=== PATIENT | female | born 2000 | race African-American/Black ===

== ENCOUNTER 2022-11-01 10:31 | Emergency (ER) | payer OTHER, SELFPAY ==
[2022-11-01 10:34] VITALS: BP 101/60; PULSE 111; RESP 18; TEMP 36.8; O2SAT 98; BMI 21.5
--- NOTE | 2022-11-01 11:19 | ED_ITS ---
HPI - General Adult General Date Seen: 11/01/22 Chief complaint: Skin/Abscess/Foreign Body Stated complaint: Rash on left side of body Time Seen by Provider: 11/01/22 10:40 Source: patient Mode of arrival: ambulatory Limitations: no limitations History of Present Illness HPI narrative: Patient is a 22-year-old young woman who presents for evaluation of a rash on her left arm. She says a couple of days ago she developed a small area of redness which has now spread. It is tender to palpation, not itchy, no injury to the area that she is aware of. No fevers or systemic complaints. General health is good. No allergies to medicines. Related Data Previous Rx's Medication Instructions Recorded cephalexin 500 mg capsule 500 mg PO QID #28 caps 11/01/22 Allergies Allergy/AdvReac Type Severity Reaction Status Date / Time No Known Drug Allergies Allergy Verified 11/01/22 10:36 Review of Systems Status of ROS: Reports: 6 or more systems reviewed and unremarkable except as noted in History and below PFSH PFS Social History Smoking Status: Never smoker Do you use any of these nicotine containing products: None Second hand tobacco smoke exposure: No How often do you have a drink containing alcohol: never How often do you have six or more drinks on one occasion: Never AUDIT-C Alcohol total score: 0 Non-prescribed substance use: denies use service: No Exam Narrative: Exam Narrative: Vital signs as noted above. In general, an alert, well-appearing patient. Head: Normocephalic, atraumatic. Eyes: Pupils are equal reactive. Extraocular movements are full. Conjunctivae are normal. ENT: Mucous membranes are moist. Extremities: Well perfused. Pulses intact. On the left forearm there is an area of erythema and warmth with mild swelling, no fluctuance or evidence of abscess. I do not see an obvious wound or insect bite. No lymphangitic streaki ng. Distal CMS is intact. Neurologic: Patient is alert and oriented to person and place. Speech is fluent. Face is symmetric. Moves all extremities equally. Affect: Normal. Skin: Warm and dry. Well perfused. Left arm as above. Const: Vital Signs, click to edit/add: Vital Signs - 24 hr 11/01/22 10:34 Temperature 98.2 F Pulse Rate [Right Pulse Oximeter] 111 H Respiratory Rate 18 Blood Pressure [Ri ght Upper Arm] 101/60 Pulse Oximetry 98 Oxygen Delivery Me thod Room Air Documenting provider has reviewed patient's vital signs: yes Course Course Hospital Course: This appears to be cellulitis, etiology unclear. Nothing that requires I and D. She is clinically nontoxic, afebrile, without significant health history. I think it is reasonable to start her on oral antibiotics, discussed with her that symptoms may worsen slightly over the next 24 hours but she should not have severe increase in redness swelling or pain and should not have new symptoms such as fever, chills, vomiting. If so, she should return to the emergency department for re-evaluation. If no improvement over the next couple of days, reassess with primary care. Keflex as prescribed. Vital Signs Vital signs: Initial Vital Signs Temperature 98.2 F 11/01/22 10:34 Temperature Source Temporal Artery Scan 11/01/22 10:34 Pulse Rate 111 H 11/01/22 10:34 Pulse Rhythm Regular 11/01/22 10:34 Pulse Strength 3+ Normal 11/01/22 10:34 Respiratory Rate 18 11/01/22 10:34 Blood Pressure 101/60 11/01/22 10:34 Blood Pressure Mean 73 11/01/22 10:34 Blood Pressure Position Sitting 11/01/22 10:34 Pulse Oximetry 98 11/01/22 10:34 Oxygen Delivery Method Room Air 11/01/22 10:34 Vital Signs Temperature 98.2 F 11/01/22 10:34 Pulse Rate 111 H 11/01/22 10:34 Respiratory Rate 18 11/01/22 10:34 Blood Pressure 101/60 11/01/22 10:34 Pulse Oximetry 98 11/01/22 10:34 Oxygen Delivery Method Room Air 11/01/22 10:34 Temperature 98.2 F 11/01/22 10:34 Pulse Rate 111 H 11/01/22 10:34 Respiratory Rate 18 11/01/22 10:34 Blood Pressure 101/60 11/01/22 10:34 Pulse Oximetry 98 11/01/22 10:34 Oxygen Delivery Method Room Air 11/01/22 10:34 Discharge Plan Discharge Clinical Impression: Cellulitis Patient Disposition: Home, Self-Care Condition: Stable Instructions: Cellulitis (ED) Additional Instructions: Antibiotic as prescribed. Return for severe worsening at any time, you may note mild increase in redness and or swelling over the next 24 hours as the antibi otic starts to work. Within 48 hours you should be starting to improve. If at any time you have new symptoms such as fevers, chills, vomiting return for re- evaluation. I am not able to prescribe the medication out of the [facility] machine as it is not currently stocked, I have sent to your pharmacy instead. Prescriptions: New cephalexin 500 mg capsule 500 mg PO QID Qty: 28 0RF Stand Alone Forms: [facility] Info Instructions
== END 2022-11-01 11:04 | disposition home or self-care (01) ==
LOC: ED 10:57
PROVIDERS: Emergency Provider Emergency Medicine
DX: L03.114 Cellulitis of left upper limb (principal)
CPT/HCPCS: 99283; 99284